=== PATIENT | female | born 1950 | race Hispanic/Latino ===

== ENCOUNTER 2017-08-04 14:46 | Emergency (ER) | payer MEDICARE, OTHER ==
[~2017-08-04] VITALS: Ht 162.6 cm; Wt 109.3 kg
[~2017-08-04 14:46] MED LIST: BACLOFEN10 MG PO; CARAFATE1 G1 PO; CLONAZEPAM PO; DICYCLOMINE PO; DITROPAN XL5 MG PO; FLUCONAZOLE100 MG PO; LEVAQUIN500 MG PO; LEVOTHYROXINE PO; LORAZEPAM PO; LORAZEPAM1 MG PO; LOSARTAN POTASS25 MG; MOBIC7.5 M1 PO; NEXIUM PO; PAROXETINE; PAXIL40 MG PO; POTASSIUM CHLO20 ME1 PO; PROAIR HFA INH8.5 GM INH; SEROQUEL25 MG PO; TESSALON PERLE100 MG PO; ULTRAM50 MG PO; Z.0.BACLOFEN10 MG PO; Z.0.LOSARTAN POTASS2 PO; Z.0.PRAVASTATIN SOD2 PO; Z.0.PROZAC40 MG PO; Z.1.MECLIZINE HCL25 PO; ZETIA10 MG PO; ZOFRAN ODT4 MG SL; ZYRTEC10 M3; [UNRECOGNIZED DRUG - CODE] PO; [UNRECOGNIZED DRUG - CODE] PO; [UNRECOGNIZED DRUG - OTHER] TP
[2017-08-04] MEDS ORDERED: IBUPROFEN 400 MG TAB PO ONE (17:00)
--- NOTE | 2017-08-04 17:24 | Diagnostic Imaging Report ---
PROCEDURE: CHEST SINGLE (PORTABLE) 1645 hrs. COMPARISON: Chest x-ray 08/20/16. INDICATIONS: COGH,WEAK, FEVER FINDINGS: LUNGS: The left diaphragm is poorly visualized. No evidence of mass or infiltrate in the visualized portions of the lungs. No interstitial edema. PLEURA: The right costophrenic angles are sharp. The left costophrenic angles are poorly visualized. No pneumothorax. HEART \T\ MEDIASTINUM: The heart is enlarged. The pulmonary arteries are enlarged as well as the pulmonary veins. No change compared to previous exam. BONES \T\ SOFT TISSUES: No focal osseous lesions. Soft tissues are unremarkable.. CONCLUSION: 1. Poor visualization of the left diaphragm could be due to atelectasis or infiltrate with without pleural effusion. Recommend correlation with PA and lateral chest x-ray when clinically feasible. 2. Stable cardiomegaly without vascular congestion. Prominence of the pulmonary arteries is stable suggestive of pulmonary artery hypertension.. Dictated by: Dana Gutiérrez M.D. on 08/04/2017 at 17:31 Electronically approved by: Dana Gutiérrez M.D. on 08/04/2017 at 17:31
[2017-08-04] MEDS ORDERED: OSELTAMIVIR PHOSPHATE 75 MG CAP PO ONE (18:15)
--- NOTE | 2017-08-04 18:57 | Diagnostic Imaging Report ---
PROCEDURE: X-RAY CHEST, TWO VIEWS COMPARISON: Portable Chest x-ray 1645 hrs.. INDICATIONS: COUGH, FEVER FINDINGS: LUNGS/PLEURA: The diaphragms are better visualized. The lung volumes remain low, however. There is no evidence of mass or infiltrate. The pulmonary vasculature is normal. The costophrenic angle are sharp. No pneumothorax. HEART \T\ MEDIASTINUM: The heart is enlarged with prominence of the pulmonary arteries suggestive of pulmonary artery hypertension. BONES \T\ SOFT TISSUES: The bones are diffusely demineralized. There are no focal osseous lesions. Surgical clips in the upper abdomen are suggestive of cholecystectomy.. CONCLUSION: No evidence of infiltrate or pleural effusion. Stable cardiomegaly with prominence of the pulmonary arteries suggestive of pulmonary artery hypertension. No evidence of CHF. Dictated by: Dana Gutiérrez M.D. on 08/04/2017 at 19:04 Electronically approved by: Dana Gutiérrez M.D. on 08/04/2017 at 19:04
== END 2017-08-04 19:19 | disposition home or self-care (01) ==
LOC: ER 14:46
DX: R50.9 Fever, unspecified (principal); R05 Cough; J09.X2 Influenza due to identified novel influenza A virus with other respiratory manifestations; I10 Essential (primary) hypertension; I69.90 Unspecified sequelae of unspecified cerebrovascular disease
CPT/HCPCS: 71010; 71020; 87400; 99283

== ENCOUNTER 2018-05-24 00:01 | Emergency (ER) | payer MEDICARE, OTHER ==
[~2018-05-24] VITALS: Ht 162.6 cm; Wt 109.3 kg
[2018-05-24] MEDS ORDERED: PANTOPRAZOLE 40 MG 10ML VIAL IV STA (01:06)
[2018-05-24 02:51] LABS: BASOPHILS # (AUTO) 0.1 (0.0-0.1); BASOPHILS % 0.9 % (0.0-1.0); EOSINOPHILS # (AUTO) 0.2 (0.0-0.4); EOSINOPHILS % 1.7 % (0.0-6.0); HEMATOCRIT 38.6 % (34.2-44.1); HEMOGLOBIN 12.1 g/dL (12.0-16.0); LYMPHOCYTES # (AUTO) 5.1 (1.0-3.2); LYMPHOCYTES % 48.5 % (18.0-39.1); MEAN CORPUSCULAR HEMOGLOBIN 27.3 pg (28-32); MEAN CORPUSCULAR HGB CONC 31.3 g/dL (31-35); MEAN CORPUSCULAR VOLUME 87.1 fL (81-99); MONOCYTES # (AUTO) 0.7 (0.2-0.8); MONOCYTES % 6.7 % (4.4-11.3); NEUTROPHILS # (AUTO) 4.4 (2.1-6.9); NEUTROPHILS % 41.7 % (38.7-80.0); PLATELET COUNT 313 x10e3/uL (140-360); RED BLOOD COUNT 4.43 x10e6/uL (3.6-5.1); RED CELL DISTRIBUTION WIDTH 15.6 % (11.7-14.4)
[2018-05-24 02:55] LABS: INR 0.92; PROTHROMBIN TIME 13.2 seconds (11.9-14.5)
[2018-05-24 02:56] LABS: PARTIAL THROMBOPLASTIN TIME 29.7 seconds (23.8-35.5)
[2018-05-24 03:05] LABS: ALANINE AMINOTRANSFERASE 51 IU/L (0-55); ALBUMIN 3.7 g/dL (3.5-5.0); ALKALINE PHOSPHATASE 117 IU/L (40-150); BLOOD UREA NITROGEN 15 mg/dL (7-26); BUN/CREATININE RATIO 18 (6-25); CALCIUM 10.3 mg/dL (8.4-10.2); CHLORIDE 100 mmol/L (98-107); CREATININE, SERUM 0.85 mg/dL (0.57-1.11); EST GLOMERULAR FILTRATION RATE > 60 ML/MIN (60-); GLUCOSE 173 mg/dL (74-118); POTASSIUM 4.4 mmol/L (3.5-5.1); SODIUM 136 mmol/L (136-145)
[2018-05-24 03:21] LABS: ANION GAP 14.4 mmol/L (8-16)
[2018-05-24 03:59] VITALS: BP 119/82
--- OUTSIDE RECORDS SUMMARY | 2018-05-31 12:10 | XMS REPORT ---
Author [facility] Address Unknown Phone Unavailable Care Team Providers Care Cuprous Chloride Helper Name Role Phone Sarah BENSON Unavailable Unavailable Problems This patient has no known problems. Allergies, Adverse Reactions, Alerts This patient has no known allergies or adverse reactions. Medications This patient has no known medications. Results Test Description Test Time Test Comments Text Results Atomic Results Result Comments CHEST 2 VIEWS [place] [address] Patient Name: TAZ GRIJALVA MR #: [id number] : 1950 Age/Sex: 66/F Req #: [id number] Adm Physician: Ordered by: TERRI BENSON MD Report #: [id number] Location: ER Room/Bed: Procedure: [id number] DX/CHEST 2 VIEWS Exam Date: 08/04/17 Exam Time: 1800 REPORT STATUS: Signed PROCEDURE: X-RAY CHEST, TWO VIEWS COMPARISON: Portable Chest x-ray 1645 hrs.. INDICATIONS: COUGH, FEVER FINDINGS: LUNGS/PLEURA: The diaphragms are better visualized. The lung volumes remain low, however. There is no evidence of mass or infiltrate. The pulmonary vasculature is normal. The costophrenic angle are sharp. No pneumothorax. HEART T MEDIASTINUM: The heart is enlarged with prominence of the pulmonary arteries suggestive of pulmonary artery hypertension. BONES T SOFT TISSUES: The bones are diffusely demineralized. There are no focal osseous lesions. Surgical clips in the upper abdomen are suggestive of cholecystectomy.. CONCLUSION: No evidence of infiltrate or pleural effusion. Stable cardiomegaly with prominence of the pulmonary arteries suggestive of pulmonary artery hypertension. No evidence of CHF. Dictated by: Roro Gutiérrez M.D. on 08/04/2017 at 19:04 Electronically approved by: Roro Gutiérrez M.D. on 08/04/2017 at 19:04 Dictated By: RORO GUTIÉRREZ MD 03 Transcribed By: ELHAM on 08/04/171903 COPY TO: TERRI BENSON MD CHEST SINGLE (PORTABLE) [place] [address] Patient Name: TAZ GRIJALVA MR #: [id number] : 1950 Age/Sex: 66/F Req #: [id number] Adm Physician: Ordered by: TERRI BENSON MD Report #: [id number] Location: ER Room/Bed: Procedure: [id number] DX/CHEST SINGLE (PORTABLE) Exam Date: 08/04/17 Exam Time: 1650 REPORT STATUS: Signed PROCEDURE: CHEST SINGLE (PORTABLE) 1645 hrs. COMPARISON: Chest x-ray 08/20/16. INDICATIONS: COGH,WEAK, FEVER FINDINGS: LUNGS: The left diaphragm is poorly visualized. No evidence of mass or infiltrate in the visualized portions of the lungs. No interstitial edema. PLEURA: The right costophrenic angles are sharp. The left costophrenic angles are poorly visualized. No pneumothorax. HEART T MEDIASTINUM: The heart is enlarged. The pulmonary arteries are enlarged as well as the pulmonary veins. No change compared to previous exam. BONES T SOFT TISSUES: No focal osseous lesions. Soft tissues are unremarkable.. CONCLUSION: 1. Poor visualization of the left diaphragm could be due to atelectasis or infiltrate with without pleural effusion. Recommend correlation with PA and lateral chest x-ray when clinically feasible. 2. Stable cardiomegaly without vascular congestion. Prominence of the pulmonary arteries is stable suggestive of pulmonary artery hypertension.. Dictated by: Roro Gutiérrez M.D. on 08/04/2017 at 17:31 Electronically approved by: Roro Gutiérrez M.D. on 08/04/2017 at 17:31 Dictated By: WILFREDO GUTIÉRREZ MD 173 Transcribed By: ELHAM on 08/04/171730 COPY TO: TERRI BENSON MD
[2018-06-21] MEDS ORDERED: PROMETHAZINE HC25 M1 PO (13:44)
[2018-06-21] MEDS ORDERED: VIT B12 PO (13:45)
[2018-06-21] MEDS ORDERED: VIT D3 PO (13:45)
[2018-06-21] MEDS ORDERED: SUCRALFATE1 GM PO (13:45)
[2018-06-21] MEDS ORDERED: LOSARTAN POTAS100 MG PO (13:45)
[2018-06-21] MEDS ORDERED: PAROXETINE HCL20 MG PO (13:46)
[2018-06-21] MEDS ORDERED: LEVOTHYROXINE112 MCG PO (13:46)
[2018-06-21] MEDS ORDERED: LORAZEPAM1 MG PO (13:46)
[2018-06-21] MEDS ORDERED: CLONAZEPAM1 MG PO (13:47)
[2018-06-21] MEDS ORDERED: NEXIUM40 M1 PO (13:47)
[2018-06-21] MEDS ORDERED: BACLOFEN10 MG PO (13:47)
[2018-06-21] MEDS ORDERED: DICYCLOMINE HCL20 MG PO (13:48)
[2018-06-21] MEDS ORDERED: ULTRAM 50MG50 MG PO (13:48)
== END 2018-05-24 04:05 | disposition home or self-care (01) ==
LOC: ER 00:01
DX: K64.4 Residual hemorrhoidal skin tags (principal); I10 Essential (primary) hypertension; I69.354 Hemiplegia and hemiparesis following cerebral infarction affecting left non-dominant side; Z82.49 Family history of ischemic heart disease and other diseases of the circulatory system; Z88.5 Allergy status to narcotic agent; Z88.0 Allergy status to penicillin
CPT/HCPCS: 36415; 80053; 85025; 85610; 85730; 96374; 99283

== ENCOUNTER → 2018-06-23 | Day surgery (SDC) | payer MEDICARE, OTHER ==
[2018-06-21 14:24] LABS: BASOPHILS # (AUTO) 0.1 (0.0-0.1); BASOPHILS % 0.7 % (0.0-1.0); EOSINOPHILS # (AUTO) 0.2 (0.0-0.4); EOSINOPHILS % 2.1 % (0.0-6.0); HEMATOCRIT 36.3 % (34.2-44.1); HEMOGLOBIN 11.2 g/dL (12.0-16.0); LYMPHOCYTES # (AUTO) 3.3 (1.0-3.2); LYMPHOCYTES % 38.7 % (18.0-39.1); MEAN CORPUSCULAR HEMOGLOBIN 27.1 pg (28-32); MEAN CORPUSCULAR HGB CONC 30.9 g/dL (31-35); MEAN CORPUSCULAR VOLUME 87.9 fL (81-99); MONOCYTES # (AUTO) 0.8 (0.2-0.8); MONOCYTES % 9.4 % (4.4-11.3); NEUTROPHILS # (AUTO) 4.1 (2.1-6.9); NEUTROPHILS % 48.7 % (38.7-80.0); PLATELET COUNT 289 x10e3/uL (140-360); RED BLOOD COUNT 4.13 x10e6/uL (3.6-5.1); RED CELL DISTRIBUTION WIDTH 15.9 % (11.7-14.4)
[~2018-06-23] MED LIST changes: +CLONAZEPAM1 MG PO; +DICYCLOMINE HCL20 MG PO; +FENTANYL CITRATE/PF 100MCG/2 ML INJ ONE; +KETAMINE HCL INJ 50 MG/ML 10 ML VIAL ONE; +LEVOTHYROXINE112 MCG PO; +LOSARTAN POTAS100 MG PO; +MIDAZOLAM HCL 2 MG/2 ML VIAL ONE; +NEXIUM40 M1 PO; +PAROXETINE HCL20 MG PO; +PROMETHAZINE HC25 M1 PO; +PROPOFOL IV EMULSION 10 MG/ML 20 ML VIAL IV ONE; +SUCRALFATE1 GM PO; +ULTRAM 50MG50 MG PO; +VIT B12 PO; +VIT D3 PO
[2018-06-23 10:55] VITALS: BP 130/63
--- NOTE | 2018-06-23 12:48 | Operative Report ---
DATE OF PROCEDURE: June 23, 2018 GASTROINTESTINAL PROCEDURE NOTE PROCEDURE PERFORMED: Colonoscopy. PREOPERATIVE DIAGNOSIS: Hematochezia. POSTOPERATIVE DIAGNOSIS: Internal hemorrhoids, otherwise normal colon examination. PREOP MEDICATIONS: Consisted of TIVA anesthesia. PROCEDURE: Using the Olympus Red Swoosh video colonoscope, this was inserted into the patient's rectum and advanced without difficulty to the level of the proximal ascending colon. The scope could not be advanced beyond this area because of the excessive redundancy of her colon. The colon was studied from that level back down to the rectum. No polypoid lesions, tumors, masses or inflammatory changes were encountered. Down in the rectum, internal hemorrhoids were present. The colonoscope was withdrawn from the patient's rectum, and the procedure was ended. Job#: [id number] JELENA
== END | disposition home or self-care (01) ==
LOC: OR 07:07
PROVIDERS: ATTEND Internal Medicine Gastroenterology
DX: K64.8 Other hemorrhoids (principal); K92.1 Melena; K44.9 Diaphragmatic hernia without obstruction or gangrene; K25.9 Gastric ulcer, unspecified as acute or chronic, without hemorrhage or perforation; I69.354 Hemiplegia and hemiparesis following cerebral infarction affecting left non-dominant side; I10 Essential (primary) hypertension; G47.33 Obstructive sleep apnea (adult) (pediatric); E66.01 Morbid (severe) obesity due to excess calories; F32.9 Major depressive disorder, single episode, unspecified; F41.9 Anxiety disorder, unspecified; Z88.6 Allergy status to analgesic agent; Z88.0 Allergy status to penicillin; Z01.810 Encounter for preprocedural cardiovascular examination; Z01.812 Encounter for preprocedural laboratory examination; Z68.43 Body mass index [BMI] 50.0-59.9, adult; Z80.0 Family history of malignant neoplasm of digestive organs
CPT/HCPCS: 36415; 45378; 85025; 93005; J2250; J2704

== ENCOUNTER 2019-10-04 23:19 | Emergency (ER) | payer MEDICARE, OTHER ==
[~2019-10-04] VITALS: Ht 162.6 cm; Wt 109.3 kg
[~2019-10-04 23:19] MED LIST changes: -FENTANYL CITRATE/PF 100MCG/2 ML INJ ONE; -KETAMINE HCL INJ 50 MG/ML 10 ML VIAL ONE; -MIDAZOLAM HCL 2 MG/2 ML VIAL ONE; -PROPOFOL IV EMULSION 10 MG/ML 20 ML VIAL IV ONE
--- NOTE | 2019-10-04 23:41 | NUR ---
DR. SILVER AT BEDSIDE FOR INITIAL EVALUATION. NAD NOTED AT THIS TIME. PT HAS NO FURTHER QUESTIONS AT THIS TIME.
[2019-10-05] MEDS ORDERED: LORAZEPAM 1 MG TAB PO ONE
[2019-10-05 00:27] LABS: BILIRUBIN,URINE NEGATIVE (NEGATIVE); CLARITY,URINE CLEAR (CLEAR); COLOR,URINE YELLOW (YELLOW); KETONES,URINE NEGATIVE (NEGATIVE); LEUKOCYTE ESTERASE ,URINE NEGATIVE (NEGATIVE); NITRITE,URINE NEGATIVE (NEGATIVE); PROTEIN,URINE DIPSTICK NEGATIVE (NEGATIVE); URINE UROBILINOGEN 0.2 mg/dL (0.2 - 1)
[2019-10-05 00:38] LABS: BACTERIA,URINE FEW /HPF; EPITHELIAL CELLS,URINE FEW /LPF; RBC,URINE 0-5 /HPF (0-5); WBC,URINE (MAN) 0-5 /HPF (0-5)
== END 2019-10-05 01:00 | disposition home or self-care (01) ==
LOC: ER 23:19
DX: F41.1 Generalized anxiety disorder (principal)
CPT/HCPCS: 81001; 87086; 99283

== ENCOUNTER 2021-06-15 00:48 | Emergency (ER) | payer MEDICARE, OTHER ==
[~2021-06-15] VITALS: Ht 162.6 cm; Wt 109.3 kg
[2021-06-15] MEDS ORDERED: SODIUM CHLORIDE 0.9% 1000ML 1,000 ML IV STA (01:02)
[2021-06-15] MEDS ORDERED: ONDANSETRON HCL INJ 2MG/ML 2ML 2 MG/ML VIAL IV STA (01:14)
[2021-06-15] MEDS ORDERED: Morphine 4mg Syringe 4 MG/ML INJ IV ONE (01:15)
[2021-06-15] MEDS ORDERED: Morphine 4mg Syringe 4 MG/ML INJ ONE (01:30)
[2021-06-15 01:39] LABS: BASOPHILS # (AUTO) 0.1 (0.0-0.1); BASOPHILS % 0.6 % (0.0-1.0); EOSINOPHILS # (AUTO) 0.1 (0.0-0.4); EOSINOPHILS % 0.8 % (0.0-6.0); HEMATOCRIT 40.1 % (34.2-44.1); HEMOGLOBIN 12.5 g/dL (12.0-16.0); LYMPHOCYTES # (AUTO) 5.3 (1.0-3.2); LYMPHOCYTES % 41.8 % (18.0-39.1); MEAN CORPUSCULAR HEMOGLOBIN 27.2 pg (28-32); MEAN CORPUSCULAR HGB CONC 31.2 g/dL (31-35); MEAN CORPUSCULAR VOLUME 87.4 fL (81-99); MONOCYTES % 7.7 % (4.4-11.3); NEUTROPHILS # (AUTO) 6.2 (2.1-6.9); NEUTROPHILS % 48.8 % (38.7-80.0); PLATELET COUNT 371 x10e3/uL (140-360); RED BLOOD COUNT 4.59 x10e6/uL (3.6-5.1); RED CELL DISTRIBUTION WIDTH 18.6 % (11.7-14.4)
[2021-06-15 01:58] LABS: ALBUMIN 3.5 g/dL (3.5-5.0); ALBUMIN/GLOBULIN RATIO 0.8 (0.8-2.0); CALCIUM 9.4 mg/dL (8.4-10.2); CREATININE, SERUM 0.85 mg/dL (0.57-1.11)
[2021-06-15 02:07] LABS: CREATINE KINASE MB 0.4 ng/mL (0-5.0)
[2021-06-15] MEDS ORDERED: SODIUM CHLORIDE 0.9% 50ML 50 ML ONE (03:04)
[2021-06-15] MEDS ORDERED: IOPAMIDOL 370 MG/ML 200 ML INFUS..BTL INJ ONE (03:04)
[2021-06-15] MEDS ORDERED: ONDANSETRON ODT4 MG PO (04:12)
[2021-06-15] MEDS ORDERED: PEPCID20 MG PO (04:12)
== END 2021-06-15 05:15 | disposition home or self-care (01) ==
LOC: ER 01:03
DX: R10.33 Periumbilical pain (principal); I10 Essential (primary) hypertension; I25.10 Atherosclerotic heart disease of native coronary artery without angina pectoris; F32.A Depression, unspecified; E03.9 Hypothyroidism, unspecified; I69.354 Hemiplegia and hemiparesis following cerebral infarction affecting left non-dominant side
CPT/HCPCS: 36415; 71045; 74177; 80053; 82550; 82553; 83690; 83880; 84484; 85025; 99284; J2270; J2405; J7030; Q9967

== ENCOUNTER 2024-05-18 19:12 | Emergency (ER) | payer MEDICARE, OTHER ==
[~2024-05-18] VITALS: Ht 162.6 cm; Wt 77.1 kg
[~2024-05-18 19:12] MED LIST changes: +ASPIRIN81 MG PO; +ATORVASTATIN CA20 MG PO; +ATORVASTATIN CA80 MG PO; +CIPRO500 MG PO; +DONEPEZIL HCL10 MG PO; +ESCITALOPRAM OX20 MG PO; +ESOMEPRAZOLE MA40 MG PO; +FAMOTIDINE40 MG PO; +FLOMAX0.4 MG PO; +FOLIC ACID0.4 MG PO; +LOSARTAN POTASS50 MG PO; +MIRALAX17 GM PO; +ONDANSETRON ODT4 MG PO; +OXYBUTYNIN CHLOR5 MG PO; +PEPCID20 MG PO; +QUETIAPINE FUMA50 MG PO; +RISPERIDONE0.5 MG PO
[2024-05-18] MEDS: SODIUM CHLORIDE 0.9% 1000ML 1,000 ML IV STA (20:53)
[2024-05-18] MEDS: ONDANSETRON HCL INJ 2MG/ML 2ML 2 MG/ML VIAL IV STA (20:53)
[2024-05-18 20:55] LABS: BASOPHILS # (AUTO) 0.1 (0.0-0.1); BASOPHILS % 0.8 % (0.0-1.0); EOSINOPHILS # (AUTO) 0.1 (0.0-0.4); EOSINOPHILS % 0.9 % (0.0-6.0); LYMPHOCYTES # (AUTO) 2.6 (1.0-3.2); LYMPHOCYTES % 33.2 % (18.0-39.1); MEAN CORPUSCULAR HGB CONC 29.7 g/dL (31-35); MEAN CORPUSCULAR VOLUME 87.5 fL (81-99); MONOCYTES # (AUTO) 0.8 (0.2-0.8); MONOCYTES % 10.3 % (4.4-11.3); NEUTROPHILS # (AUTO) 4.3 (2.1-6.9); NEUTROPHILS % 54.4 % (38.7-80.0); PLATELET COUNT 259 x10e3/uL (140-360); RED BLOOD COUNT 4.23 x10e6/uL (3.6-5.1); RED CELL DISTRIBUTION WIDTH 19.4 % (11.7-14.4)
[2024-05-18 21:20] LABS: ALBUMIN 3.8 g/dL (3.5-5.0); ALBUMIN/GLOBULIN RATIO 1.1 (0.8-2.0); ANION GAP 15.2 mmol/L (8-16); BILIRUBIN,TOTAL 0.4 mg/dL (0.2-1.2); CREATININE, SERUM 0.95 mg/dL (0.57-1.11); POTASSIUM 4.2 mmol/L (3.5-5.1); TOTAL PROTEIN 7.3 g/dL (6.5-8.1)
[2024-05-18 21:26] LABS: TROPONIN I 0.004 ng/mL (0-0.300)
[2024-05-18 21:33] LABS: COLOR,URINE YELLOW (YELLOW)
[2024-05-18 21:34] LABS: BILIRUBIN,URINE SMALL (NEGATIVE); CLARITY,URINE CLOUDY (CLEAR); GLUCOSE, URINE NEGATIVE (NEGATIVE); KETONES,URINE NEGATIVE (NEGATIVE); LEUKOCYTE ESTERASE ,URINE SMALL (NEGATIVE); NITRITE,URINE POSITIVE (NEGATIVE); PH,URINE 6.5 (5 - 7); PROTEIN,URINE DIPSTICK 1+ (NEGATIVE); URINE UROBILINOGEN 0.2 mg/dL (0.2 - 1)
[2024-05-18 21:42] LABS: BACTERIA,URINE MODERATE /HPF; EPITHELIAL CELLS,URINE MANY /LPF; WBC,URINE (MAN) >50 /HPF (0-5)
[2024-05-18] MEDS ORDERED: IOPAMIDOL 370 MG/ML 100 ML INFUS..BTL INJ ONE (21:43)
[2024-05-19] MEDS: KETOROLAC TROMETHAMINE 30 MG/ML VIAL IV STA (00:20)
[2024-05-19] MEDS ORDERED: PROTONIX20 MG PO (00:25)
[2024-05-19] MEDS ORDERED: ULTRAM 50MG50 MG PO (00:39)
[2024-05-19] MEDS: ONDANSETRON HCL INJ 2MG/ML 2ML 2 MG/ML VIAL IV STA (00:48)
[2024-05-19 02:30] VITALS: TEMP 98.2
[2024-05-19 03:00] VITALS: PULSE 66; RESP 16; O2SAT 100
== END 2024-05-19 03:20 | disposition home or self-care (01) ==
LOC: ER 19:18
DX: R10.13 Epigastric pain (principal); N39.0 Urinary tract infection, site not specified; R11.0 Nausea; I10 Essential (primary) hypertension; I69.354 Hemiplegia and hemiparesis following cerebral infarction affecting left non-dominant side; F03.90 Unspecified dementia, unspecified severity, without behavioral disturbance, psychotic disturbance, mood disturbance, and anxiety; E03.9 Hypothyroidism, unspecified; I25.10 Atherosclerotic heart disease of native coronary artery without angina pectoris; F32.A Depression, unspecified; R94.31 Abnormal electrocardiogram [ECG] [EKG]; Z98.84 Bariatric surgery status
CPT/HCPCS: 36415; 74177; 80053; 81001; 82550; 83690; 84484; 85025; 87086; 87186; 93005; 99284; J1885; J2405 ×2; J7030; Q9967

== ENCOUNTER 2024-05-31 09:05 | Inpatient (IN) | payer MEDICARE, OTHER ==
[2024-05-31] VITALS (10 sets, daily range): BP systolic 143–147; BP diastolic 63–67; PULSE 57–69; RESP 18–19; TEMP 97.6–98.6; O2SAT 97–100
[~2024-05-31] VITALS: Ht 162.6 cm; Wt 77.1 kg
[~2024-05-31 09:05] MED LIST changes: +PROTONIX20 MG PO
[2024-05-31 11:17] LABS: ALANINE AMINOTRANSFERASE 14 IU/L (0-55); ALBUMIN 3.3 g/dL (3.5-5.0); ALBUMIN/GLOBULIN RATIO 1.1 (0.8-2.0); ALKALINE PHOSPHATASE 79 IU/L (40-150); ANION GAP 17.5 mmol/L (8-16); BILIRUBIN,TOTAL 0.5 mg/dL (0.2-1.2); BLOOD UREA NITROGEN 9 mg/dL (7-26); BUN/CREATININE RATIO 10 (6-25); CALCIUM 9.6 mg/dL (8.4-10.2); CARBON DIOXIDE 23 mmol/L (22-29); CHLORIDE 105 mmol/L (98-107); CREATININE, SERUM 0.89 mg/dL (0.57-1.11); EST GLOMERULAR FILTRATION RATE 68 ML/MIN (>=60); GLUCOSE 105 mg/dL (74-118); POTASSIUM 3.5 mmol/L (3.5-5.1); SODIUM 142 mmol/L (136-145); TOTAL PROTEIN 6.4 g/dL (6.5-8.1)
[2024-05-31 11:22] LABS: TROPONIN I < 0.001 ng/mL (0-0.300)
[2024-05-31 11:36] LABS: BASOPHILS # (AUTO) 0.1 (0.0-0.1); BASOPHILS % 0.7 % (0.0-1.0); EOSINOPHILS # (AUTO) 0.1 (0.0-0.4); HEMATOCRIT 39.8 % (34.2-44.1); HEMOGLOBIN 11.9 g/dL (12.0-16.0); LYMPHOCYTES # (AUTO) 2.1 (1.0-3.2); LYMPHOCYTES % 24.8 % (18.0-39.1); MEAN CORPUSCULAR HGB CONC 29.9 g/dL (31-35); MEAN CORPUSCULAR VOLUME 90.5 fL (81-99); MONOCYTES # (AUTO) 0.8 (0.2-0.8); MONOCYTES % 9.3 % (4.4-11.3); NEUTROPHILS # (AUTO) 5.3 (2.1-6.9); NEUTROPHILS % 63.8 % (38.7-80.0); PLATELET COUNT 172 x10e3/uL (140-360); RED CELL DISTRIBUTION WIDTH 21.1 % (11.7-14.4); WHITE BLOOD COUNT 8.35 x10e3/uL (4.8-10.8)
[2024-05-31 13:49] LABS: BILIRUBIN,URINE NEGATIVE (NEGATIVE); CLARITY,URINE CLEAR (CLEAR); COLOR,URINE YELLOW (YELLOW); GLUCOSE, URINE NEGATIVE (NEGATIVE); KETONES,URINE NEGATIVE (NEGATIVE); LEUKOCYTE ESTERASE ,URINE TRACE (NEGATIVE); NITRITE,URINE NEGATIVE (NEGATIVE); PH,URINE 5.5 (5 - 7); PROTEIN,URINE DIPSTICK NEGATIVE (NEGATIVE); URINE UROBILINOGEN 0.2 mg/dL (0.2 - 1)
[2024-05-31 14:02] LABS: BACTERIA,URINE MANY /HPF; CALCIUM OXALATE CRYSTALS,UR FEW (FEW); EPITHELIAL CELLS,URINE MODERATE /LPF; RBC,URINE 0-5 /HPF (0-5); RENAL EPITHELIAL CELLS,URINE FEW; TRANSITIONAL EPI CELLS,URINE FEW; WBC,URINE (MAN) 21-50 /HPF (0-5)
[2024-05-31] MEDS: TRAMADOL HCL 50 MG TAB PO SCH (21:06)
[2024-06-01] VITALS (7 sets, daily range): BP systolic 122–140; BP diastolic 50–60; PULSE 51–70; RESP 18–20; TEMP 98.2–98.8; O2SAT 96–100
[2024-06-01 06:55] LABS: BASOPHILS # (AUTO) 0.1 (0.0-0.1); EOSINOPHILS # (AUTO) 0.2 (0.0-0.4); EOSINOPHILS % 2.9 % (0.0-6.0); HEMOGLOBIN 10.3 g/dL (12.0-16.0); LYMPHOCYTES # (AUTO) 3.1 (1.0-3.2); LYMPHOCYTES % 53.5 % (18.0-39.1); MEAN CORPUSCULAR HEMOGLOBIN 27.2 pg (28-32); MEAN CORPUSCULAR HGB CONC 30.3 g/dL (31-35); MEAN CORPUSCULAR VOLUME 89.9 fL (81-99); MONOCYTES # (AUTO) 0.4 (0.2-0.8); MONOCYTES % 7.3 % (4.4-11.3); NEUTROPHILS % 35.3 % (38.7-80.0); PLATELET COUNT 198 x10e3/uL (140-360); RED BLOOD COUNT 3.78 x10e6/uL (3.6-5.1); RED CELL DISTRIBUTION WIDTH 20.9 % (11.7-14.4); WHITE BLOOD COUNT 5.79 x10e3/uL (4.8-10.8)
[2024-06-01 07:15] LABS: ANION GAP 11.3 mmol/L (8-16); CALCIUM 9.3 mg/dL (8.4-10.2); CREATININE, SERUM 0.74 mg/dL (0.57-1.11)
[2024-06-01 07:18] LABS: POTASSIUM 3.3 mmol/L (3.5-5.1)
[2024-06-01 07:41] LABS: CHOL/HDL RATIO 3.7 (3.0-3.6)
[2024-06-01 08:01] LABS: THYROID STIMULATING HORMONE 0.365 uIU/mL (0.350-4.940)
[2024-06-01] MEDS ORDERED: ACETAMINOPHEN 325 MG TAB PO PRN (09:15)
[2024-06-01] MEDS: DICYCLOMINE HCL 20 MG TAB PO SCH (12:26)
[2024-06-01] MEDS: ONDANSETRON HCL INJ 2MG/ML 2ML 2 MG/ML VIAL IV PRN (12:32)
[2024-06-01] MEDS: RISPERIDONE 0.5 MG TAB PO SCH (18:16)
[2024-06-01] MEDS: ENOXAPARIN SOD INJ 40 MG/0.4 ML SYR SC SCH (18:17)
[2024-06-01] MEDS: DONEPEZIL HCL 5 MG TAB PO SCH (21:26)
[2024-06-01] MEDS: ATORVASTATIN 20 MG TAB PO SCH (21:26)
[2024-06-01] MEDS: TRAMADOL HCL 50 MG TAB PO PRN (21:27)
[2024-06-02] VITALS (8 sets, daily range): BP systolic 118–134; BP diastolic 50–57; PULSE 52–54; RESP 17–18; TEMP 97.8–99.1; O2SAT 98–100
[2024-06-02] MEDS: LEVOTHYROXINE SODIUM 112 MCG TAB PO SCH (05:12)
[2024-06-02] MEDS: PANTOPRAZOLE SOD 40 MG TABEC PO SCH (08:10)
[2024-06-02] MEDS: NON-FORMULARY MEDICATION (Folic Acid* 0.4 MG) PO SCH (09:00)
[2024-06-02] MEDS: ASPIRIN 81 MG CHEW TAB PO SCH (09:13)
[2024-06-02] MEDS: ESCITALOPRAM OXALATE 10 MG TAB PO SCH (09:13)
[2024-06-02] MEDS: SENNA-S TABLET PO SCH (11:40)
[2024-06-02] MEDS: MAGNESIUM HYDROXIDE 30 ML UDC PO ONE (11:40)
[2024-06-03] VITALS (7 sets, daily range): BP systolic 113–137; BP diastolic 50–59; PULSE 44–74; RESP 14–18; TEMP 97.5–98.6; O2SAT 95–100
[2024-06-03 06:52] LABS: BASOPHILS % 0.6 % (0.0-1.0); EOSINOPHILS # (AUTO) 0.1 (0.0-0.4); EOSINOPHILS % 1.9 % (0.0-6.0); HEMATOCRIT 35.4 % (34.2-44.1); HEMOGLOBIN 10.3 g/dL (12.0-16.0); LYMPHOCYTES # (AUTO) 2.2 (1.0-3.2); LYMPHOCYTES % 40.8 % (18.0-39.1); MEAN CORPUSCULAR HEMOGLOBIN 26.8 pg (28-32); MEAN CORPUSCULAR HGB CONC 29.1 g/dL (31-35); MEAN CORPUSCULAR VOLUME 91.9 fL (81-99); MONOCYTES # (AUTO) 0.5 (0.2-0.8); MONOCYTES % 9.4 % (4.4-11.3); NEUTROPHILS # (AUTO) 2.5 (2.1-6.9); NEUTROPHILS % 47.1 % (38.7-80.0); PLATELET COUNT 147 x10e3/uL (140-360); RED BLOOD COUNT 3.85 x10e6/uL (3.6-5.1); RED CELL DISTRIBUTION WIDTH 20.5 % (11.7-14.4); WHITE BLOOD COUNT 5.32 x10e3/uL (4.8-10.8)
[2024-06-03 07:04] LABS: ANION GAP 13.7 mmol/L (8-16); CREATININE, SERUM 0.7 mg/dL (0.57-1.11); POTASSIUM 3.7 mmol/L (3.5-5.1)
[2024-06-04] VITALS (8 sets, daily range): BP systolic 117–152; BP diastolic 52–66; PULSE 50–61; RESP 18–19; TEMP 98–98.8; O2SAT 97–100
[2024-06-04] MEDS: POLYETHYLENE GLYCOL 3350 17 GM PACK PO PRN (08:23)
[2024-06-05 04:00] VITALS: BP 155/58; PULSE 53; RESP 18; TEMP 97.9; O2SAT 97
[2024-06-05 08:17] VITALS: BP 120/51; PULSE 40; RESP 16; TEMP 98; O2SAT 98
[2024-06-05 12:34] VITALS: BP 142/59; PULSE 50; RESP 18; TEMP 98.2; O2SAT 99
[2024-06-05 16:38] VITALS: BP 140/58; PULSE 59; RESP 17; TEMP 98.8; O2SAT 100
[2024-06-05] MEDS: DOXYCYCLINE HYCLATE TABLET 100 MG TAB PO SCH (17:17)
[2024-06-05 20:00] VITALS: BP 112/48; PULSE 63; RESP 18; TEMP 98.6; O2SAT 98
[2024-06-05 21:00] VITALS: BP 112/48; PULSE 63; RESP 18; TEMP 98.6; O2SAT 98
[2024-06-06] VITALS (7 sets, daily range): BP systolic 113–147; BP diastolic 48–79; PULSE 60–63; RESP 17–18; TEMP 97.9–99.4; O2SAT 95–100
[2024-06-06 07:01] LABS: BASOPHILS % 0.7 % (0.0-1.0); EOSINOPHILS # (AUTO) 0.1 (0.0-0.4); EOSINOPHILS % 1.8 % (0.0-6.0); HEMOGLOBIN 9.9 g/dL (12.0-16.0); LYMPHOCYTES # (AUTO) 2.6 (1.0-3.2); MEAN CORPUSCULAR HEMOGLOBIN 26.9 pg (28-32); MEAN CORPUSCULAR HGB CONC 29.1 g/dL (31-35); MEAN CORPUSCULAR VOLUME 92.4 fL (81-99); MONOCYTES # (AUTO) 0.5 (0.2-0.8); MONOCYTES % 8.9 % (4.4-11.3); NEUTROPHILS # (AUTO) 2.6 (2.1-6.9); NEUTROPHILS % 44.1 % (38.7-80.0); PLATELET COUNT 158 x10e3/uL (140-360); RED BLOOD COUNT 3.68 x10e6/uL (3.6-5.1); WHITE BLOOD COUNT 5.96 x10e3/uL (4.8-10.8)
[2024-06-06 07:36] LABS: ANION GAP 11.7 mmol/L (8-16); CALCIUM 8.9 mg/dL (8.4-10.2); CREATININE, SERUM 0.66 mg/dL (0.57-1.11); POTASSIUM 3.7 mmol/L (3.5-5.1)
[2024-06-06] MEDS: FENTANYL CITRATE/PF 100MCG/2 ML INJ ONE (09:08)
[2024-06-06] MEDS: MIDAZOLAM HCL 2 MG/2 ML VIAL ONE (09:08)
[2024-06-06] MEDS: SODIUM CHLORIDE 0.9% 250ML 250 ML ONE (09:09)
[2024-06-06] MEDS: SODIUM CHLORIDE 0.9% 1000ML 2,000 ML ONE (09:09)
[2024-06-06] MEDS: LIDOCAINE HCL 2% LOCAL 20 ML VIAL ONE (09:09)
[2024-06-06] MEDS: SODIUM CHLORIDE 0.9% 500ML 500 ML ONE (09:09)
[2024-06-06] MEDS: IOPAMIDOL 610MG/1ML 300 MG/ML VIAL IV ONE (09:09)
[2024-06-06] MEDS: Vancomycin IV 1 GM VIAL ONE (09:09)
[2024-06-06] MEDS: GENTAMICIN SULFATE 40 MG/ML 2 ML VIAL ONE (09:10)
[2024-06-06 10:01] LABS: ANISOCYTOSIS MODERATE; EOSINOPHILS % (MANUAL) 4 % (0-7); HYPOCHROMASIA MODERATE; LYMPHOCYTES % (MANUAL) 47 % (19-48); MONOCYTES % (MANUAL) 10 % (3.4-9.0); NEUTROPHILS % (MANUAL) 39 % (40-74); PLATELET ESTIMATE ADEQUATE; PLATELET MORPHOLOGY COMMENT NORMAL; RBC MORPHOLOGY COMMENT ABNORMAL
[2024-06-07] VITALS (8 sets, daily range): BP systolic 114–145; BP diastolic 51–65; PULSE 62–66; RESP 17–19; TEMP 98–99.2; O2SAT 94–98
[2024-06-07] MEDS: MAGNESIUM HYDROXIDE 30 ML UDC PO PRN (09:44)
[2024-06-07] MEDS: TRAMADOL HCL 50 MG TAB PO PRN (20:40)
[2024-06-08 04:43] VITALS: BP 110/50; PULSE 63; RESP 18; TEMP 98.3; O2SAT 97
[2024-06-08 07:49] VITALS: BP 110/52; PULSE 66; RESP 18; TEMP 98; O2SAT 97
[2024-06-08 07:51] VITALS: BP 110/52; PULSE 66; RESP 18; TEMP 98; O2SAT 97
[2024-06-08] MEDS ORDERED: ONDANSETRON HCL 4 MG ORAL DISINTEGRATING TAB PO PRN (12:00)
== END 2024-06-08 12:05 | disposition home or self-care (01) | DRG 243 ==
LOC: ER 09:11 → ERHOLD 11:44 → MED/SURG3 13:14 → OBSVTOIN 06-01 09:12
PROVIDERS: ADMIT Internal Medicine; ATTEND Internal Medicine
PROC: 0JH606Z Insertion of Pacemaker, Dual Chamber into Chest Subcutaneous Tissue and Fascia, Open Approach (ICD-10-PCS; principal; 2024-06-05)
PROC: 02H63JZ Insertion of Pacemaker Lead into Right Atrium, Percutaneous Approach (ICD-10-PCS; 2024-06-05)
PROC: 02HK3JZ Insertion of Pacemaker Lead into Right Ventricle, Percutaneous Approach (ICD-10-PCS; 2024-06-05)
DX: I49.5 Sick sinus syndrome (principal); F01.53 Vascular dementia, unspecified severity, with mood disturbance; I69.354 Hemiplegia and hemiparesis following cerebral infarction affecting left non-dominant side; N39.0 Urinary tract infection, site not specified; I50.32 Chronic diastolic (congestive) heart failure; I11.0 Hypertensive heart disease with heart failure; R55 Syncope and collapse; I49.8 Other specified cardiac arrhythmias; R53.81 Other malaise; I25.10 Atherosclerotic heart disease of native coronary artery without angina pectoris; E89.0 Postprocedural hypothyroidism; R33.9 Retention of urine, unspecified; M19.90 Unspecified osteoarthritis, unspecified site; G47.33 Obstructive sleep apnea (adult) (pediatric); E78.5 Hyperlipidemia, unspecified; E66.9 Obesity, unspecified; Z68.29 Body mass index [BMI] 29.0-29.9, adult; Z79.82 Long term (current) use of aspirin; Z79.890 Hormone replacement therapy; Z99.3 Dependence on wheelchair; Z90.49 Acquired absence of other specified parts of digestive tract; Z90.710 Acquired absence of both cervix and uterus; Z98.84 Bariatric surgery status; Z88.0 Allergy status to penicillin; Z88.5 Allergy status to narcotic agent; Z82.49 Family history of ischemic heart disease and other diseases of the circulatory system; Z82.3 Family history of stroke
CPT/HCPCS: 33208; 36415; 70450; 71045; 80048; 80053; 80061; 81001; 83880; 84443; 84484; 85025; 93005; 93306; 93880; 94799; 99152; 99153; 99252; 99284; C1769; C1785; C1898; G0378; J0696; J1580; J1650; J2003; J2250; J2405; J7030; J7040; J7050

== ENCOUNTER 2024-06-24 08:42 | Inpatient (IN) | payer MEDICARE, OTHER ==
[2024-06-24] VITALS (8 sets, daily range): BP systolic 158–167; BP diastolic 72–84; PULSE 68–78; RESP 17–19; TEMP 97.8–98.3; O2SAT 97–99
[~2024-06-24] VITALS: Ht 162.6 cm; Wt 82.4 kg
[2024-06-24 09:19] LABS: BASOPHILS # (AUTO) 0.1 (0.0-0.1); EOSINOPHILS # (AUTO) 0.2 (0.0-0.4); EOSINOPHILS % 2.8 % (0.0-6.0); HEMATOCRIT 38.4 % (34.2-44.1); HEMOGLOBIN 11.7 g/dL (12.0-16.0); LYMPHOCYTES # (AUTO) 2.4 (1.0-3.2); LYMPHOCYTES % 41.5 % (18.0-39.1); MEAN CORPUSCULAR HEMOGLOBIN 27.3 pg (28-32); MEAN CORPUSCULAR HGB CONC 30.5 g/dL (31-35); MEAN CORPUSCULAR VOLUME 89.7 fL (81-99); MONOCYTES # (AUTO) 0.5 (0.2-0.8); MONOCYTES % 8.3 % (4.4-11.3); NEUTROPHILS # (AUTO) 2.7 (2.1-6.9); NEUTROPHILS % 46.1 % (38.7-80.0); PLATELET COUNT 222 x10e3/uL (140-360); RED BLOOD COUNT 4.28 x10e6/uL (3.6-5.1); RED CELL DISTRIBUTION WIDTH 18.1 % (11.7-14.4); WHITE BLOOD COUNT 5.81 x10e3/uL (4.8-10.8)
[2024-06-24 09:37] LABS: ALBUMIN 3.3 g/dL (3.5-5.0); ALBUMIN/GLOBULIN RATIO 0.9 (0.8-2.0); ANION GAP 15.1 mmol/L (8-16); BILIRUBIN,TOTAL 0.4 mg/dL (0.2-1.2); CALCIUM 9.4 mg/dL (8.4-10.2); CREATININE, SERUM 0.87 mg/dL (0.57-1.11); TOTAL PROTEIN 6.9 g/dL (6.5-8.1)
[2024-06-24 09:42] LABS: POTASSIUM 3.1 mmol/L (3.5-5.1)
[2024-06-24 09:47] LABS: BILIRUBIN,URINE NEGATIVE (NEGATIVE); CLARITY,URINE HAZY (CLEAR); COLOR,URINE YELLOW (YELLOW); GLUCOSE, URINE NEGATIVE (NEGATIVE); KETONES,URINE NEGATIVE (NEGATIVE); LEUKOCYTE ESTERASE ,URINE MODERATE (NEGATIVE); NITRITE,URINE POSITIVE (NEGATIVE); PH,URINE 7 (5 - 7); PROTEIN,URINE DIPSTICK NEGATIVE (NEGATIVE); URINE UROBILINOGEN 0.2 mg/dL (0.2 - 1)
[2024-06-24 09:50] LABS: BACTERIA,URINE MANY /HPF; RBC,URINE 0-5 /HPF (0-5); WBC,URINE (MAN) >50 /HPF (0-5)
[2024-06-24 09:57] LABS: EPITHELIAL CELLS,URINE RARE /LPF
[2024-06-24] MEDS: NITROFURANTOIN MACROCRYSTALS 100 MG CAP PO SCH (11:27)
[2024-06-24] MEDS ORDERED: QUETIAPINE FUMA25 MG PO ×2 (15:14)
[2024-06-24] MEDS ORDERED: POLYETHYLENE GLYCOL 3350 17 GM PACK PO PRN (16:15)
[2024-06-24] MEDS ORDERED: ONDANSETRON HCL 4 MG ORAL DISINTEGRATING TAB PO PRN (17:30)
[2024-06-24] MEDS: RISPERIDONE 0.5 MG TAB PO SCH (17:38)
[2024-06-24] MEDS: TRAMADOL HCL 50 MG TAB PO PRN (17:38)
[2024-06-24] MEDS: DICYCLOMINE HCL 20 MG TAB PO SCH (17:38)
[2024-06-24] MEDS: SUCRALFATE 1 GM TAB PO SCH (17:38)
[2024-06-24] MEDS ORDERED: ONDANSETRON HCL 4 MG ORAL DISINTEGRATING TAB PO SCH (18:00)
[2024-06-24] MEDS ORDERED: TRAMADOL HCL 50 MG TAB PO SCH (18:00)
[2024-06-24] MEDS: PANTOPRAZOLE SOD 40 MG TABEC PO SCH (18:33)
[2024-06-24] MEDS: FAMOTIDINE 20 MG TAB PO SCH (18:33)
[2024-06-24] MEDS: DONEPEZIL HCL 5 MG TAB PO SCH (21:24)
[2024-06-24] MEDS: ATORVASTATIN 20 MG TAB PO SCH (21:25)
[2024-06-24] MEDS: QUETIAPINE FUMARATE 25 MG TAB PO SCH (21:26)
[2024-06-25] VITALS (7 sets, daily range): BP systolic 140–158; BP diastolic 64–69; PULSE 65–72; RESP 18–20; TEMP 97.2–98.6; O2SAT 97–99
[2024-06-25 05:33] LABS: BASOPHILS # (AUTO) 0.1 (0.0-0.1); BASOPHILS % 0.8 % (0.0-1.0); EOSINOPHILS # (AUTO) 0.1 (0.0-0.4); EOSINOPHILS % 1.8 % (0.0-6.0); HEMATOCRIT 33.5 % (34.2-44.1); HEMOGLOBIN 10.4 g/dL (12.0-16.0); LYMPHOCYTES # (AUTO) 3.2 (1.0-3.2); LYMPHOCYTES % 52.7 % (18.0-39.1); MEAN CORPUSCULAR HEMOGLOBIN 27.4 pg (28-32); MEAN CORPUSCULAR VOLUME 88.2 fL (81-99); MONOCYTES # (AUTO) 0.5 (0.2-0.8); MONOCYTES % 8.6 % (4.4-11.3); NEUTROPHILS # (AUTO) 2.2 (2.1-6.9); NEUTROPHILS % 35.9 % (38.7-80.0); PLATELET COUNT 197 x10e3/uL (140-360); RED CELL DISTRIBUTION WIDTH 18.1 % (11.7-14.4); WHITE BLOOD COUNT 6.05 x10e3/uL (4.8-10.8)
[2024-06-25 06:02] LABS: ANION GAP 12.3 mmol/L (8-16); CALCIUM 9.1 mg/dL (8.4-10.2); CREATININE, SERUM 0.73 mg/dL (0.57-1.11)
[2024-06-25 06:03] LABS: POTASSIUM 3.3 mmol/L (3.5-5.1)
[2024-06-25] MEDS: LEVOTHYROXINE SODIUM 112 MCG TAB PO SCH (06:21)
[2024-06-25] MEDS ORDERED: VIT D3 PO SCH (09:00)
[2024-06-25] MEDS ORDERED: NON-FORMULARY MEDICATION ([Vit B12] 1 TAB) PO SCH (09:00)
[2024-06-25] MEDS: ASPIRIN 81 MG CHEW TAB PO SCH (09:44)
[2024-06-25] MEDS: FOLIC ACID 1 MG TAB PO SCH (09:44)
[2024-06-25] MEDS ORDERED: ONDANSETRON HCL INJ 2MG/ML 2ML 2 MG/ML VIAL IV PRN (09:45)
[2024-06-25] MEDS: ESCITALOPRAM OXALATE 10 MG TAB PO SCH (09:45)
[2024-06-25] MEDS: QUETIAPINE FUMARATE 25 MG TAB PO SCH (09:45)
[2024-06-26] VITALS (7 sets, daily range): BP systolic 131–159; BP diastolic 67–72; PULSE 66–74; RESP 18–20; TEMP 97.7–99; O2SAT 94–98
[2024-06-27] VITALS (8 sets, daily range): BP systolic 122–166; BP diastolic 63–79; PULSE 63–75; RESP 16–18; TEMP 97.8–98.1; O2SAT 97–99
[2024-06-28] VITALS: BP 131/54; PULSE 69; RESP 20; TEMP 97.7; O2SAT 98
[2024-06-28 05:48] VITALS: BP 137/63; PULSE 69; RESP 16; TEMP 97.7; O2SAT 97
[2024-06-28 08:11] VITALS: BP 141/54; PULSE 79; RESP 16; TEMP 98.4; O2SAT 98
[2024-06-28 08:44] LABS: BASOPHILS % 0.6 % (0.0-1.0); EOSINOPHILS # (AUTO) 0.2 (0.0-0.4); EOSINOPHILS % 2.5 % (0.0-6.0); HEMATOCRIT 36.2 % (34.2-44.1); HEMOGLOBIN 10.8 g/dL (12.0-16.0); LYMPHOCYTES # (AUTO) 2.7 (1.0-3.2); LYMPHOCYTES % 41.7 % (18.0-39.1); MEAN CORPUSCULAR HEMOGLOBIN 27.1 pg (28-32); MEAN CORPUSCULAR HGB CONC 29.8 g/dL (31-35); MONOCYTES # (AUTO) 0.6 (0.2-0.8); PLATELET COUNT 167 x10e3/uL (140-360); RED BLOOD COUNT 3.98 x10e6/uL (3.6-5.1); RED CELL DISTRIBUTION WIDTH 17.5 % (11.7-14.4); WHITE BLOOD COUNT 6.43 x10e3/uL (4.8-10.8)
[2024-06-28 09:00] VITALS: BP 141/54; PULSE 79; RESP 16; TEMP 98.4; O2SAT 98
[2024-06-28 09:10] LABS: ANION GAP 13.4 mmol/L (8-16); CALCIUM 9.3 mg/dL (8.4-10.2); CREATININE, SERUM 0.69 mg/dL (0.57-1.11)
[2024-06-28 09:13] LABS: POTASSIUM 3.4 mmol/L (3.5-5.1)
[2024-06-28 12:24] VITALS: BP 151/64; PULSE 69; RESP 18; TEMP 97.8; O2SAT 98
== END 2024-06-28 15:43 | DRG 689 ==
LOC: ER 08:47 → ERHOLD 10:03 → MED/SURG2 11:48 → OBSVTOIN 06-25 09:43 → UNDODISIN 06-28 15:43
PROVIDERS: ADMIT Internal Medicine; ATTEND Internal Medicine
DX: N39.0 Urinary tract infection, site not specified (principal); G92.8 Other toxic encephalopathy; I69.354 Hemiplegia and hemiparesis following cerebral infarction affecting left non-dominant side; F01.53 Vascular dementia, unspecified severity, with mood disturbance; F01.54 Vascular dementia, unspecified severity, with anxiety; I50.32 Chronic diastolic (congestive) heart failure; I49.5 Sick sinus syndrome; I95.1 Orthostatic hypotension; I25.10 Atherosclerotic heart disease of native coronary artery without angina pectoris; F32.A Depression, unspecified; N31.9 Neuromuscular dysfunction of bladder, unspecified; G47.33 Obstructive sleep apnea (adult) (pediatric); I11.0 Hypertensive heart disease with heart failure; R33.9 Retention of urine, unspecified; E89.0 Postprocedural hypothyroidism; E66.9 Obesity, unspecified; Z68.31 Body mass index [BMI] 31.0-31.9, adult; Z79.82 Long term (current) use of aspirin; Z79.890 Hormone replacement therapy; Z95.0 Presence of cardiac pacemaker; Z87.440 Personal history of urinary (tract) infections; Z90.49 Acquired absence of other specified parts of digestive tract; Z98.84 Bariatric surgery status; Z90.710 Acquired absence of both cervix and uterus; Z88.5 Allergy status to narcotic agent; Z88.0 Allergy status to penicillin; Z99.3 Dependence on wheelchair; Z82.49 Family history of ischemic heart disease and other diseases of the circulatory system
CPT/HCPCS: 36415; 71045; 80048; 80053; 81001; 83880; 84484; 85025; 93005; 94799; 99284; G0378; J0692

== ENCOUNTER 2024-07-18 13:21 | Emergency (ER) | payer MEDICARE, OTHER ==
[~2024-07-18] VITALS: Ht 162.6 cm; Wt 82.1 kg
[~2024-07-18 13:21] MED LIST changes: +QUETIAPINE FUMA25 MG PO
[2024-07-18 13:56] VITALS: PULSE 74; RESP 16; TEMP 98.6; O2SAT 99
== END 2024-07-18 16:01 | disposition home or self-care (01) ==
LOC: ER 13:59
DX: M25.512 Pain in left shoulder (principal); S40.012A Contusion of left shoulder, initial encounter; W07.XXXA Fall from chair, initial encounter; Y92.89 Other specified places as the place of occurrence of the external cause; F03.90 Unspecified dementia, unspecified severity, without behavioral disturbance, psychotic disturbance, mood disturbance, and anxiety; I10 Essential (primary) hypertension; I25.10 Atherosclerotic heart disease of native coronary artery without angina pectoris; K21.9 Gastro-esophageal reflux disease without esophagitis; F41.9 Anxiety disorder, unspecified; F32.A Depression, unspecified; I69.354 Hemiplegia and hemiparesis following cerebral infarction affecting left non-dominant side; Z95.810 Presence of automatic (implantable) cardiac defibrillator
CPT/HCPCS: 70450; 72125; 99284

== ENCOUNTER 2024-09-02 19:23 | Inpatient (IN) | payer MEDICARE, OTHER ==
[~2024-09-02] VITALS: Ht 162.6 cm; Wt 82.1 kg
[2024-09-02 19:29] VITALS: TEMP 98
[2024-09-02] MEDS: SODIUM CHLORIDE 0.9% 1000ML 1,000 ML IV STA (20:14)
[2024-09-02 20:25] LABS: BASOPHILS % 0.5 % (0.0-1.0); EOSINOPHILS # (AUTO) 0.1 (0.0-0.4); EOSINOPHILS % 2.1 % (0.0-6.0); HEMATOCRIT 40.9 % (34.2-44.1); HEMOGLOBIN 12.2 g/dL (12.0-16.0); LYMPHOCYTES # (AUTO) 2.6 (1.0-3.2); LYMPHOCYTES % 45.1 % (18.0-39.1); MEAN CORPUSCULAR HGB CONC 29.8 g/dL (31-35); MONOCYTES # (AUTO) 0.4 (0.2-0.8); MONOCYTES % 7.4 % (4.4-11.3); NEUTROPHILS # (AUTO) 2.6 (2.1-6.9); NEUTROPHILS % 44.7 % (38.7-80.0); PLATELET COUNT 170 x10e3/uL (140-360); RED BLOOD COUNT 4.35 x10e6/uL (3.6-5.1); RED CELL DISTRIBUTION WIDTH 16.9 % (11.7-14.4)
[2024-09-02 20:30] LABS: CLARITY,URINE CLOUDY (CLEAR); COLOR,URINE YELLOW (YELLOW); GLUCOSE, URINE NEGATIVE (NEGATIVE); KETONES,URINE NEGATIVE (NEGATIVE); LEUKOCYTE ESTERASE ,URINE 1+ (NEGATIVE); NITRITE,URINE NEGATIVE (NEGATIVE); PH,URINE 7.5 (5 - 7); PROTEIN,URINE DIPSTICK NEGATIVE (NEGATIVE)
[2024-09-02 20:31] LABS: BILIRUBIN,URINE NEGATIVE (NEGATIVE); URINE UROBILINOGEN 0.2 mg/dL (0.2 - 1)
[2024-09-02 20:39] LABS: CORONAVIRUS COVID-19 AG NEGATIVE (NEGATIVE); INFLUENZA A AG NEGATIVE (NEGATIVE); INFLUENZA B AG NEGATIVE (NEGATIVE); STREPTOCOCCUS GRP A ANTIGEN NEGATIVE (NEGATIVE)
[2024-09-02 20:44] LABS: BACTERIA,URINE MANY /HPF; EPITHELIAL CELLS,URINE MANY /LPF; WBC,URINE (MAN) 21-50 /HPF (0-5)
[2024-09-02 20:47] LABS: ALBUMIN 3.4 g/dL (3.5-5.0); ALBUMIN/GLOBULIN RATIO 0.9 (0.8-2.0); ANION GAP 16.5 mmol/L (8-16); BILIRUBIN,TOTAL 0.6 mg/dL (0.2-1.2); CALCIUM 9.3 mg/dL (8.4-10.2); CREATININE, SERUM 0.87 mg/dL (0.57-1.11); POTASSIUM 3.5 mmol/L (3.5-5.1)
[2024-09-02 20:53] LABS: TROPONIN I 0.002 ng/mL (0-0.300)
[2024-09-02] MEDS: SODIUM CHLORIDE 0.9% 1000ML 1,000 ML IV SCH (22:44)
[2024-09-02 22:56] VITALS: PULSE 77; RESP 18
[2024-09-02] MEDS: Morphine 4mg INJECTION 4 MG/ML INJ IV PRN (23:09)
[2024-09-02] MEDS: ONDANSETRON HCL INJ 2MG/ML 2ML 2 MG/ML VIAL IV PRN (23:09)
[2024-09-03] VITALS (7 sets, daily range): BP systolic 102–152; BP diastolic 49–75; PULSE 61–75; RESP 16–18; TEMP 97.6–98.3; O2SAT 95–100
[2024-09-03] MEDS ORDERED: MIRTAZAPINE7.5 MG PO (00:22)
[2024-09-03] MEDS ORDERED: LEXAPRO10 MG PO (00:22)
[2024-09-03 07:25] LABS: BASOPHILS % 0.7 % (0.0-1.0); EOSINOPHILS # (AUTO) 0.1 (0.0-0.4); EOSINOPHILS % 1.4 % (0.0-6.0); HEMATOCRIT 34.5 % (34.2-44.1); HEMOGLOBIN 10.3 g/dL (12.0-16.0); LYMPHOCYTES # (AUTO) 2.4 (1.0-3.2); LYMPHOCYTES % 41.6 % (18.0-39.1); MEAN CORPUSCULAR HGB CONC 29.9 g/dL (31-35); MEAN CORPUSCULAR VOLUME 93.8 fL (81-99); MONOCYTES # (AUTO) 0.5 (0.2-0.8); MONOCYTES % 9.4 % (4.4-11.3); NEUTROPHILS # (AUTO) 2.6 (2.1-6.9); NEUTROPHILS % 46.7 % (38.7-80.0); PLATELET COUNT 139 x10e3/uL (140-360); RED BLOOD COUNT 3.68 x10e6/uL (3.6-5.1); RED CELL DISTRIBUTION WIDTH 16.9 % (11.7-14.4); WHITE BLOOD COUNT 5.65 x10e3/uL (4.8-10.8)
[2024-09-03 07:39] LABS: ALBUMIN 2.7 g/dL (3.5-5.0); ANION GAP 11.6 mmol/L (8-16); BILIRUBIN,TOTAL 0.7 mg/dL (0.2-1.2); CALCIUM 8.4 mg/dL (8.4-10.2); CREATININE, SERUM 0.74 mg/dL (0.57-1.11); POTASSIUM 3.6 mmol/L (3.5-5.1); TOTAL PROTEIN 5.4 g/dL (6.5-8.1)
[2024-09-03 07:48] LABS: TROPONIN I 0.006 ng/mL (0-0.300)
[2024-09-03] MEDS: DICYCLOMINE HCL 20 MG TAB PO SCH (12:44)
[2024-09-03] MEDS: ENOXAPARIN SOD INJ 40 MG/0.4 ML SYR SC SCH (17:15)
[2024-09-03 19:11] LABS: TROPONIN I 0.006 ng/mL (0-0.300)
[2024-09-03] MEDS: ATORVASTATIN 20 MG TAB PO SCH (20:35)
[2024-09-03] MEDS: QUETIAPINE FUMARATE 25 MG TAB PO SCH (20:35)
[2024-09-04] VITALS (9 sets, daily range): BP systolic 105–143; BP diastolic 51–81; PULSE 73–84; RESP 16–19; TEMP 97.5–98.4; O2SAT 95–100
[2024-09-04] MEDS: LEVOTHYROXINE SODIUM 112 MCG TAB PO SCH (05:39)
[2024-09-04 06:41] LABS: BASOPHILS % 0.6 % (0.0-1.0); EOSINOPHILS # (AUTO) 0.1 (0.0-0.4); EOSINOPHILS % 2.4 % (0.0-6.0); HEMATOCRIT 33.1 % (34.2-44.1); HEMOGLOBIN 10.4 g/dL (12.0-16.0); LYMPHOCYTES # (AUTO) 2.6 (1.0-3.2); LYMPHOCYTES % 51.7 % (18.0-39.1); MEAN CORPUSCULAR HEMOGLOBIN 27.7 pg (28-32); MEAN CORPUSCULAR HGB CONC 31.4 g/dL (31-35); MEAN CORPUSCULAR VOLUME 88.3 fL (81-99); MONOCYTES # (AUTO) 0.4 (0.2-0.8); NEUTROPHILS # (AUTO) 1.9 (2.1-6.9); NEUTROPHILS % 36.9 % (38.7-80.0); PLATELET COUNT 145 x10e3/uL (140-360); RED BLOOD COUNT 3.75 x10e6/uL (3.6-5.1); RED CELL DISTRIBUTION WIDTH 17.3 % (11.7-14.4); WHITE BLOOD COUNT 5.01 x10e3/uL (4.8-10.8)
[2024-09-04 07:11] LABS: ANION GAP 13.9 mmol/L (8-16); CALCIUM 8.9 mg/dL (8.4-10.2); CREATININE, SERUM 0.73 mg/dL (0.57-1.11); POTASSIUM 3.9 mmol/L (3.5-5.1)
[2024-09-04 07:39] LABS: TROPONIN I 0.001 ng/mL (0-0.300)
[2024-09-04] MEDS: ASPIRIN 81 MG CHEW TAB PO SCH (08:51)
[2024-09-04] MEDS: QUETIAPINE FUMARATE 25 MG TAB PO SCH (08:51)
[2024-09-04] MEDS: ESCITALOPRAM OXALATE 10 MG TAB PO SCH (08:51)
[2024-09-04] MEDS: NYSTATIN 15 GM POWDER UD BTL TOP SCH (09:58)
[2024-09-04] MEDS: FLUCONAZOLE 100 MG TAB PO ONE (11:18)
[2024-09-04] MEDS: TRAMADOL HCL 50 MG TAB PO PRN (21:20)
[2024-09-05] VITALS (10 sets, daily range): BP systolic 112–132; BP diastolic 49–76; PULSE 64–89; RESP 18–20; TEMP 98–98.9; O2SAT 94–100
[2024-09-05] MEDS: FLUCONAZOLE 100 MG TAB PO SCH (08:35)
[2024-09-05] MEDS: MEROPENEM 1 GM in SODIUM CHLORIDE 0.9% 100 ML IV SCH (10:24)
[2024-09-06] VITALS (9 sets, daily range): BP systolic 116–129; BP diastolic 57–70; PULSE 74–87; RESP 17–20; TEMP 97.7–98.3; O2SAT 98–100
[2024-09-06 06:17] LABS: BASOPHILS % 0.5 % (0.0-1.0); EOSINOPHILS # (AUTO) 0.1 (0.0-0.4); EOSINOPHILS % 1.6 % (0.0-6.0); HEMATOCRIT 34.4 % (34.2-44.1); HEMOGLOBIN 10.6 g/dL (12.0-16.0); LYMPHOCYTES # (AUTO) 2.5 (1.0-3.2); LYMPHOCYTES % 43.2 % (18.0-39.1); MEAN CORPUSCULAR HGB CONC 30.8 g/dL (31-35); MONOCYTES # (AUTO) 0.6 (0.2-0.8); MONOCYTES % 10.2 % (4.4-11.3); NEUTROPHILS # (AUTO) 2.6 (2.1-6.9); NEUTROPHILS % 44.3 % (38.7-80.0); PLATELET COUNT 165 x10e3/uL (140-360); RED BLOOD COUNT 3.78 x10e6/uL (3.6-5.1); RED CELL DISTRIBUTION WIDTH 17.3 % (11.7-14.4); WHITE BLOOD COUNT 5.79 x10e3/uL (4.8-10.8)
[2024-09-06 06:43] LABS: ANION GAP 12.6 mmol/L (8-16); CALCIUM 9.3 mg/dL (8.4-10.2); CREATININE, SERUM 0.66 mg/dL (0.57-1.11); POTASSIUM 3.6 mmol/L (3.5-5.1)
[2024-09-07] VITALS (11 sets, daily range): BP systolic 104–135; BP diastolic 44–68; PULSE 72–88; RESP 16–18; TEMP 97–98.1; O2SAT 95–100
[2024-09-07] MEDS: SUCRALFATE 1 GM TAB PO SCH (11:43)
[2024-09-07] MEDS: SODIUM CHLORIDE 0.9% 250ML 250 ML ONE (11:43)
[2024-09-08] VITALS (11 sets, daily range): BP systolic 110–128; BP diastolic 55–73; PULSE 72–82; RESP 18–20; TEMP 97–98.1; O2SAT 93–100
[2024-09-08] MEDS: ACETAMINOPHEN 325 MG TAB PO PRN (16:10)
[2024-09-09] VITALS (9 sets, daily range): BP systolic 100–124; BP diastolic 49–78; PULSE 61–87; RESP 18–20; TEMP 97.5–98.4; O2SAT 95–100
[2024-09-09] MEDS: SODIUM CHLORIDE 0.9% 1000ML 500 ML IV ONE (22:01)
[2024-09-10] VITALS (10 sets, daily range): BP systolic 94–124; BP diastolic 52–72; PULSE 74–90; RESP 16–21; TEMP 97.7–98.3; O2SAT 98–100
[2024-09-10] MEDS: TRAMADOL HCL 50 MG TAB PO PRN (22:51)
[2024-09-11] VITALS (8 sets, daily range): BP systolic 100–115; BP diastolic 50–60; PULSE 64–75; RESP 17–20; TEMP 97.5–98.9; O2SAT 98–100
[2024-09-11 06:29] LABS: BASOPHILS # (AUTO) 0.1 (0.0-0.1); EOSINOPHILS # (AUTO) 0.2 (0.0-0.4); EOSINOPHILS % 3.4 % (0.0-6.0); HEMATOCRIT 39.3 % (34.2-44.1); LYMPHOCYTES # (AUTO) 2.9 (1.0-3.2); LYMPHOCYTES % 54.6 % (18.0-39.1); MEAN CORPUSCULAR HEMOGLOBIN 28.2 pg (28-32); MEAN CORPUSCULAR HGB CONC 30.5 g/dL (31-35); MEAN CORPUSCULAR VOLUME 92.5 fL (81-99); MONOCYTES # (AUTO) 0.5 (0.2-0.8); MONOCYTES % 8.6 % (4.4-11.3); NEUTROPHILS # (AUTO) 1.7 (2.1-6.9); NEUTROPHILS % 32.2 % (38.7-80.0); PLATELET COUNT 186 x10e3/uL (140-360); RED BLOOD COUNT 4.25 x10e6/uL (3.6-5.1); RED CELL DISTRIBUTION WIDTH 17.4 % (11.7-14.4); WHITE BLOOD COUNT 5.22 x10e3/uL (4.8-10.8)
[2024-09-11 06:57] LABS: ANION GAP 13.9 mmol/L (8-16); CALCIUM 9.5 mg/dL (8.4-10.2); CREATININE, SERUM 0.65 mg/dL (0.57-1.11); POTASSIUM 3.9 mmol/L (3.5-5.1)
[2024-09-12] VITALS (8 sets, daily range): BP systolic 89–125; BP diastolic 44–62; PULSE 65–81; RESP 16–20; TEMP 97.2–98.6; O2SAT 95–100
[2024-09-12] MEDS ORDERED: [UNRECOGNIZED DRUG - OTHER] PO (14:47)
[2024-09-12] MEDS ORDERED: DIFLUCAN100 MG PO (14:47)
== END 2024-09-12 18:45 | disposition home health service (06) | DRG 690 ==
LOC: ER 19:30 → ERHOLD 22:04 → MED/SURG3 23:58
PROVIDERS: ADMIT Internal Medicine; ATTEND Internal Medicine
PROC: 0T9B70Z Drainage of Bladder with Drainage Device, Via Natural or Artificial Opening (ICD-10-PCS; principal; 2024-09-03)
DX: N30.90 Cystitis, unspecified without hematuria (principal); I69.354 Hemiplegia and hemiparesis following cerebral infarction affecting left non-dominant side; Z16.12 Extended spectrum beta lactamase (ESBL) resistance; Z16.24 Resistance to multiple antibiotics; B96.20 Unspecified Escherichia coli [E. coli] as the cause of diseases classified elsewhere; R33.9 Retention of urine, unspecified; I10 Essential (primary) hypertension; R32 Unspecified urinary incontinence; R53.81 Other malaise; K21.9 Gastro-esophageal reflux disease without esophagitis; I25.10 Atherosclerotic heart disease of native coronary artery without angina pectoris; F01.50 Vascular dementia, unspecified severity, without behavioral disturbance, psychotic disturbance, mood disturbance, and anxiety; R55 Syncope and collapse; R00.2 Palpitations; F41.9 Anxiety disorder, unspecified; F32.A Depression, unspecified; Z11.52 Encounter for screening for COVID-19; Z79.82 Long term (current) use of aspirin; Z79.890 Hormone replacement therapy; Z90.49 Acquired absence of other specified parts of digestive tract; Z95.0 Presence of cardiac pacemaker; Z90.711 Acquired absence of uterus with remaining cervical stump; Z88.0 Allergy status to penicillin; Z88.5 Allergy status to narcotic agent
CPT/HCPCS: 36415; 70450; 71045; 80048; 80053; 81001; 82550; 82948; 83518; 83880; 84484; 85025; 87070; 87086; 87186; 93005; 94799; 99252; 99284; J1335; J1650; J2185; J2270; J2405; J7030; J7050

== ENCOUNTER 2025-04-05 20:35 | Emergency (ER) | payer MEDICARE, OTHER ==
[~2025-04-05] VITALS: Ht 315 cm; Wt 82.1 kg
[~2025-04-05 20:35] MED LIST changes: +DIFLUCAN100 MG PO; +LEXAPRO10 MG PO; +MIRTAZAPINE7.5 MG PO; +[UNRECOGNIZED DRUG - OTHER] PO
[2025-04-05 20:37] VITALS: TEMP 98.5
[2025-04-05 21:13] LABS: BASOPHILS % 0.6 % (0.0-1.0); EOSINOPHILS % 3.9 % (0.0-6.0); LYMPHOCYTES % 44.3 % (18.0-39.1); MONOCYTES % 7.4 % (4.4-11.3); NEUTROPHILS % 43.7 % (38.7-80.0); RED CELL DISTRIBUTION WIDTH 14.7 % (11.7-14.4)
[2025-04-05 21:35] LABS: EST GLOMERULAR FILTRATION RATE 85.0 ML/MIN (>=60)
[2025-04-05 22:37] LABS: LEUKOCYTE ESTERASE ,URINE TRACE (NEGATIVE); PROTEIN,URINE DIPSTICK 1+ (NEGATIVE)
[2025-04-05 22:40] LABS: URINE UROBILINOGEN 0.2 mg/dL (0.2 - 1)
[2025-04-05 23:02] LABS: WBC,URINE (MAN) 21-50 /HPF (0-5)
[2025-04-05 23:03] LABS: EPITHELIAL CELLS,URINE MODERATE /LPF
[2025-04-06] MEDS ORDERED: ENULOSE10 GM/15 M PO (01:11)
[2025-04-06 01:45] VITALS: PULSE 87; RESP 18; O2SAT 98
== END 2025-04-06 02:08 | disposition home or self-care (01) ==
LOC: ER 21:04
DX: R10.30 Lower abdominal pain, unspecified (principal); N39.0 Urinary tract infection, site not specified; K59.00 Constipation, unspecified; E78.5 Hyperlipidemia, unspecified; F03.90 Unspecified dementia, unspecified severity, without behavioral disturbance, psychotic disturbance, mood disturbance, and anxiety; F41.9 Anxiety disorder, unspecified; F32.A Depression, unspecified; I69.354 Hemiplegia and hemiparesis following cerebral infarction affecting left non-dominant side
CPT/HCPCS: 36415; 71045; 74018; 80053; 81001; 85025; 99284